=== PATIENT | female | born 1970 | race African-American/Black ===

== ENCOUNTER 2016-11-25 16:15 | Emergency (ER) | payer OTHER ==
[2016-11-25 16:23] VITALS: BP 107/59; PULSE 66; TEMP 97.9; BMI 27.4
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
== END 2016-11-25 17:40 | disposition home or self-care (01) ==
LOC: FER 16:15
DX: S09.90XA Unspecified injury of head, initial encounter (principal); Y04.2XXA Assault by strike against or bumped into by another person, initial encounter; Y93.89 Activity, other specified; Y92.159 Unspecified place in reform school as the place of occurrence of the external cause; Y99.0 Civilian activity done for income or pay
CPT/HCPCS: 99282-25